=== PATIENT | female | born 1935 | race Caucasian/White ===

== ENCOUNTER 2017-03-29 14:03 | Emergency (ER) | payer MEDICARE, OTHER ==
[2017-03-29 14:19] VITALS: BMI 33.7
[2017-03-29 14:31] VITALS: BP 146/80; PULSE 88; RESP 18; TEMP 88; O2SAT 99
[2017-03-29] MEDS ORDERED: Bacitracin 500 Units/gm Oint Foilpak UD TOP ONE (15:11)
[2017-03-29] MEDS ORDERED: Bacitracin 500 Units/gm Oint Foilpak UD ONE (15:19)
--- NOTE | 2017-03-29 15:56 | C.PDOC ---
History Of Present Illness 81 y/o female presents to ED for evaluation of 3rd toe. Patient states last night she woke up and 3rd toe nail was broken. Patient has DM and is concerned for infection which prompted visit to ed today. Patient denies pain, active bleeding, fever, numbness, weakness or any other complaints at this time. Time Seen by Provider: 03/29/17 14:45 Chief Complaint (Nursing): Wound Check History Per: Patient History/Exam Limitations: no limitations Onset/Duration Of Symptoms: Days Ago Current Symptoms Are (Timing): Still Present Past Medical History Reviewed: Historical Data, Nursing Documentation, Vital Signs Vital Signs: Last Vital Signs Temp 88 F L 03/29/17 14:29 Pulse 88 03/29/17 14:29 Resp 18 03/29/17 14:29 BP 146/80 03/29/17 14:29 Pulse Ox 99 03/29/17 16:59 - Medical History PMH: Asthma, Fractures (Left wrist fx 10 years ago, Left ankle Fx 20 years ago) , HTN, Hypercholesterolemia, Osteoporosis, Rheumatoid Arthritis Surgical History: Appendectomy (60 years ago) - [facility] Procedures GAIT TRAINING/FUNCTIONAL AMBULATION TREATMENT (05/28/15) HOME MANAGEMENT TREATMENT (05/28/15) INTRODUCTION OF SERUM/TOX/VACCINE INTO MUSCLE, PERC APPROACH (05/25/15) REPLACE OF L HIP JT, FEMORAL WITH SYNTH SUB, OPEN APPROACH (05/25/15) THERAPEUTIC EXERCISE TREATMENT OF MUSCULOSK LOW BACK/LE (05/28/15) Family History: States: Unknown Family Hx - Social History Hx Alcohol Use: No Hx Substance Use: No - Immunization History Hx Tetanus Toxoid Vaccination: No Hx Influenza Vaccination: No Hx Pneumococcal Vaccination: No Review Of Systems Except As Marked, All Systems Reviewed And Found Negative. Constitutional: Negative for: Fever, Chills Musculoskeletal: Positive for: Foot Pain Skin: Negative for: Rash Neurological: Negative for: Weakness, Numbness Physical Exam - Physical Exam Appears: Non-toxic, No Acute Distress Skin: Normal Color, Warm, No Rash Head: Atraumatic, Normacephalic Eye(s): bilateral: Normal Inspection Oral Mucosa: Moist Neck: Normal ROM Chest: Symmetrical Extremity: Normal ROM, Capillary Refill (<2 seconds), Other (Left 3rd toe distal portion of nail avulsed) Pulses: Left Dorsalis Pedis: Normal, Right Dorsalis Pedis: Normal Neurological/Psych: Oriented x3, Normal Speech, Normal Motor, Normal Sensation ED Course And Treatment O2 Sat by Pulse Oximetry: 99 (RA) Pulse Ox Interpretation: Normal Progress Note: There is no evidence of cellulitis. Patient requested antibiotics to prevent infection. Disposition - Disposition Referrals: Hannah Bess DPM [Staff Provider] - [facility] [[facility]] Disposition: HOME/ ROUTINE Disposition Time: 15:54 Condition: GOOD Additional Instructions: Clean the wound twice a day and apply ointment. Wear sandals. Follow up with the [facility] within 1-2 days. Return if worsened. Prescriptions: Bacitracin Ointment [Bacitracin] 30 gm TOP BID #1 tube Cephalexin [cephalexin] 500 mg PO TID #30 cap Instructions: Nail Avulsion (ED) Forms: [facility] (Swazi) - Clinical Impression Clinical Impression: Nail avulsion - PA / PSYCHIATRIC NP / Resident Statement MD/DO has reviewed & agrees with the documentation as recorded. - Scribe Statement The provider has reviewed the documentation as recorded by the Hanyibjunior Vega All medical record entries made by the Jaelyn were at my direction and personally dictated by me. I have reviewed the chart and agree that the record accurately reflects my personal performance of the history, physical exam, medical decision making, and the department course for this patient. I have also personally directed, reviewed, and agree with the discharge instructions and disposition.
== END 2017-03-29 16:08 | disposition home or self-care (01) ==
LOC: C.ER 14:03
DX: S91.205A Unspecified open wound of left lesser toe(s) with damage to nail, initial encounter (principal); X58.XXXA Exposure to other specified factors, initial encounter

== ENCOUNTER 2017-09-27 13:56 | Emergency (ER) | payer MEDICARE, OTHER ==
[2017-09-27 13:56] VITALS: BMI 33.7
[2017-09-27 14:08] VITALS: BP 138/78; PULSE 85; RESP 17; TEMP 98.5; O2SAT 100
--- NOTE | 2017-09-27 15:36 | C.PDOC ---
History Of Present Illness 81 y/o female with multiple medical problems c/o urinary frequency. urgency , decreased urine output and stinging sensation with urination x 1 day. no ab pain , n/v, back pain, fever or chills. Time Seen by Provider: 09/27/17 15:24 Chief Complaint (Nursing): Female Genitourinary History Per: Patient, Family History/Exam Limitations: no limitations Onset/Duration Of Symptoms: Days (1) Current Symptoms Are (Timing): Still Present Severity: Mild Quality Of Discomfort: Unable To Describe Associated Symptoms: Urinary Symptoms. denies: Fever, Chills, Nausea, Vomiting , Back Pain Past Medical History Reviewed: Historical Data, Nursing Documentation, Vital Signs Vital Signs: Last Vital Signs Temp 98.5 F 09/27/17 14:06 Pulse 85 09/27/17 14:06 Resp 17 09/27/17 14:06 BP 138/78 09/27/17 14:06 Pulse Ox 100 09/29/17 18:50 - Medical History PMH: Asthma, Fractures (Left wrist fx 10 years ago, Left ankle Fx 20 years ago) , HTN, Hypercholesterolemia, Hyperlipidemia, Hypothyroidism, Osteoporosis, Rheumatoid Arthritis Denies: Chronic Kidney Disease Surgical History: Appendectomy (60 years ago) - [employer] Procedures GAIT TRAINING/FUNCTIONAL AMBULATION TREATMENT (05/28/15) HOME MANAGEMENT TREATMENT (05/28/15) INTRODUCTION OF SERUM/TOX/VACCINE INTO MUSCLE, PERC APPROACH (05/25/15) REPLACE OF L HIP JT, FEMORAL WITH SYNTH SUB, OPEN APPROACH (05/25/15) THERAPEUTIC EXERCISE TREATMENT OF MUSCULOSK LOW BACK/LE (05/28/15) Family History: States: Unknown Family Hx - Social History Hx Alcohol Use: No Hx Substance Use: No - Immunization History Hx Tetanus Toxoid Vaccination: No Hx Influenza Vaccination: No Hx Pneumococcal Vaccination: No Review Of Systems Constitutional: Negative for: Fever, Chills Gastrointestinal: Negative for: Nausea, Vomiting, Abdominal Pain, Diarrhea Genitourinary: Positive for: Dysuria, Frequency, Other (urgency). Negative for : Vaginal Discharge, Vaginal Bleeding Physical Exam - Physical Exam Appears: Non-toxic, No Acute Distress Skin: Warm, Dry Cardiovascular: Rhythm Regular, No Murmur Respiratory: No Decreased Breath Sounds, No Wheezing Gastrointestinal/Abdominal: Bowel Sounds, Soft, No Tenderness Back: No CVA Tenderness ED Course And Treatment O2 Sat by Pulse Oximetry: 100 Medical Decision Making Medical Decision Makin81 y/o female, non toxic appearing with urinary symptoms x 1 day- ua and uc. Disposition Counseled Patient/Family Regarding: Studies Performed, Diagnosis, Need For Followup, Rx Given - Disposition Referrals: Uriah Bro MD [Medical Doctor] - Disposition: HOME/ ROUTINE Disposition Time: 16:13 Condition: GOOD Additional Instructions: Please drink increased water. Take antibiotic as prescribed until complete. Foillow up with your docotor in 1-2 days. Return to ER for fever, vomiting. back pain, any concerns. Prescriptions: Nitrofurantoin Macrocrystals [Macrobid] 100 mg PO BID #14 cap Instructions: Urinary Tract Infection, Adult (DC) Forms: [facility] (Nepali), General Discharge Instructions - Clinical Impression Clinical Impression: Urinary tract infection
[2017-09-27 15:49] LABS: SQUAMOUS EPITHIAL < 1 /hpf (0-5); URINE BACTERIA MOD (<OCC); URINE BILIRUBIN NEGATIVE (NEGATIVE); URINE BLOOD 2+ (NEGATIVE); URINE CLARITY Hazy (Clear); URINE COLOR Yellow (YELLOW); URINE GLUCOSE (UA) NORMAL (Normal); URINE NITRATE NEGATIVE (NEGATIVE); URINE PROTEIN NEGATIVE (NEGATIVE); URINE UROBILINOGEN NORMAL mg/dL (0.2-1.0)
[2017-09-27 16:10] LABS: URINE LEUKOCYTE ESTERASE 3+ Leu/uL (Negative)
== END 2017-09-27 16:20 | disposition home or self-care (01) ==
LOC: C.ER 13:56
DX: N39.0 Urinary tract infection, site not specified (principal)

== ENCOUNTER 2018-10-25 19:06 | Emergency (ER) | payer MEDICARE, OTHER ==
[2018-10-25 19:07] VITALS: BMI 33.7
[2018-10-25 19:14] VITALS: O2SAT 98
[2018-10-25 19:42] LABS: SQUAMOUS EPITHIAL 1 /hpf (0-5); URINE BACTERIA RARE (<OCC); URINE BILIRUBIN NEGATIVE (NEGATIVE); URINE BLOOD 3+ (NEGATIVE); URINE CLARITY Hazy (Clear); URINE COLOR Yellow (YELLOW); URINE GLUCOSE (UA) NORMAL (Normal); URINE LEUKOCYTE ESTERASE 3+ Leu/uL (Negative); URINE PROTEIN 2+ mg/dL (NEGATIVE); URINE UROBILINOGEN NORMAL mg/dL (0.2-1.0); WBC CLUMPS FEW /hpf
--- NOTE | 2018-10-25 20:19 | C.PDOC ---
History Of Present Illness 82 y/o female pt presents to the ER c/o UTI sx including dysuria, hesitancy and urgency. Sx started yesterday and is worse today. Pt notice when she attempts to urinate, she could only produce few drops. Pt denies abdominal pain, back pain, fever, vomiting or any other associated sx or complaints at this time. Time Seen by Provider: 10/25/18 19:23 Chief Complaint (Nursing): Female Genitourinary History Per: Patient History/Exam Limitations: no limitations Onset/Duration Of Symptoms: Days (x1) Current Symptoms Are (Timing): Still Present Past Medical History Reviewed: Historical Data, Nursing Documentation, Vital Signs Vital Signs: Last Vital Signs Temp 98.7 F 10/25/18 19:10 Pulse 95 H 10/25/18 19:10 Resp 16 10/25/18 19:10 BP 153/78 H 10/25/18 19:10 Pulse Ox 98 10/25/18 19:10 - Medical History PMH: Asthma, Fractures (Left wrist fx 10 years ago, Left ankle Fx 20 years ago), HTN, Hypercholesterolemia, Hyperlipidemia, Hypothyroidism, Osteoporosis, Rheumatoid Arthritis Surgical History: Appendectomy (60 years ago) - [facility] Procedures GAIT TRAINING/FUNCTIONAL AMBULATION TREATMENT (05/28/15) HOME MANAGEMENT TREATMENT (05/28/15) INTRODUCTION OF SERUM/TOX/VACCINE INTO MUSCLE, PERC APPROACH (05/25/15) REPLACE OF L HIP JT, FEMORAL WITH SYNTH SUB, OPEN APPROACH (05/25/15) THERAPEUTIC EXERCISE TREATMENT OF MUSCULOSK LOW BACK/LE (05/28/15) Family History: States: Unknown Family Hx - Social History Hx Alcohol Use: No Hx Substance Use: No - Immunization History Hx Tetanus Toxoid Vaccination: No Hx Influenza Vaccination: No Hx Pneumococcal Vaccination: No Review Of Systems Except As Marked, All Systems Reviewed And Found Negative. Constitutional: Negative for: Fever, Chills Gastrointestinal: Negative for: Abdominal Pain Genitourinary: Positive for: Dysuria, Other (hesitancy and urgency ) Musculoskeletal: Negative for: Back Pain Skin: Negative for: Rash Neurological: Negative for: Weakness, Numbness Physical Exam - Physical Exam Appears: Non-toxic, No Acute Distress Skin: Warm, Dry, No Rash Head: Normacephalic Eye(s): bilateral: Normal Inspection Nose: Normal Oral Mucosa: Moist Throat: Normal Chest: Symmetrical Cardiovascular: Rhythm Regular Respiratory: Normal Breath Sounds, No Rales, No Rhonchi, No Wheezing Gastrointestinal/Abdominal: Soft, No Tenderness Back: No CVA Tenderness Extremity: Normal ROM (x4) Neurological/Psych: Oriented x3, Normal Speech ED Course And Treatment - Laboratory Results Lab Results: Urine Color Yellow (YELLOW) 10/25/18 19:32 Urine Clarity Hazy (Clear) 10/25/18 19:32 Urine pH 5.0 (5.0-8.0) 10/25/18 19:32 Ur Specific Harshaw 1.010 (1.003-1.030) 10/25/18 19:32 Urine Protein 2+ mg/dL (NEGATIVE) H 10/25/18 19:32 Urine Glucose (UA) Normal mg/dL (Normal) 10/25/18 19:32 Urine Ketones Negative mg/dL (NEGATIVE) 10/25/18 19:32 Urine Blood 3+ (NEGATIVE) H 10/25/18 19:32 Urine Nitrate Negative (NEGATIVE) 10/25/18 19:32 Urine Bilirubin Negative (NEGATIVE) 10/25/18 19:32 Urine Urobilinogen Normal mg/dL (0.2-1.0) 10/25/18 19:32 Ur Leukocyte Esterase 3+ Adelita/uL (Negative) H 10/25/18 19:32 Urine WBC (Auto) 1125 /hpf (0-5) H 10/25/18 19:32 Urine RBC (Auto) 186 /hpf (0-3) H 10/25/18 19:32 Urine WBC Clumps (Auto) Few /hpf (NONE) H 10/25/18 19:32 Ur Squamous Epith Cells 1 /hpf (0-5) 10/25/18 19:32 Urine Bacteria Rare (<OCC) 10/25/18 19:32 O2 Sat by Pulse Oximetry: 98 (RA) Pulse Ox Interpretation: Normal Progress Note: plans: -- urine cx. -- cipro. -- pyridium. Lab results indicate +UTI. Pt remains stable, treated with cipro and follow up as well as return precautions were discussed Reassessment Condition: Improved Disposition Counseled Patient/Family Regarding: Diagnosis, Need For Followup - Disposition Referrals: [facility] [Outside] Disposition: HOME/ ROUTINE Disposition Time: 20:16 Condition: STABLE Additional Instructions: Increase Fluids Take medications as directed Return to ER if fever, severe abdominal pain, back pain , vomiting or worse Prescriptions: Ciprofloxacin [Cipro] 1 tab PO BID #14 tab Phenazopyridine HCl [Pyridium] 100 mg PO TID #6 tablet Instructions: Urinary Tract Infection, Adult (DC) Forms: [facility] (Pashto) - Clinical Impression Clinical Impression: UTI (urinary tract infection) - PA / DIRECTOR OF PROCUREMENT / Resident Statement / has reviewed & agrees with the documentation as recorded. - Scribe Statement The provider has reviewed the documentation as recorded by the Jaelyn Long Do All medical record entries made by the Jaelyn were at my direction and personally dictated by me. I have reviewed the chart and agree that the record accurately reflects my personal performance of the history, physical exam, medical decision making, and the department course for this patient. I have also personally directed, reviewed, and agree with the discharge instructions and disposition.
[2018-10-25 20:30] VITALS: BP 137/83; PULSE 79; RESP 18; TEMP 98.4
== END 2018-10-25 20:28 | disposition home or self-care (01) ==
LOC: C.ER 19:06
DX: N39.0 Urinary tract infection, site not specified (principal)